=== PATIENT | female | born 1960 | race Two or more races ===

== ENCOUNTER 2019-11-11 11:50 | Emergency (ER) | payer MEDICAID, OTHER ==
[~2019-11-11] VITALS: Ht 154.9 cm; Wt 89.8 kg
[2019-11-11 12:04] VITALS: BP 110/68
== END 2019-11-11 13:05 | disposition home or self-care (01) ==
LOC: ER 11:50
DX: H10.32 Unspecified acute conjunctivitis, left eye (principal); E11.9 Type 2 diabetes mellitus without complications; I10 Essential (primary) hypertension